=== PATIENT | male | born 1950 | race Caucasian/White ===

== ENCOUNTER 2022-02-25 05:18 | Emergency (ER) | payer MEDICARE, OTHER ==
[~2022-02-25] VITALS: Ht 180.3 cm; Wt 123.2 kg
[2022-02-25 05:25] VITALS: BP 141/85
[2022-02-25] MEDS ORDERED: SULF1TAB49 PO (07:24)
[2022-02-25] MEDS ORDERED: bacitracin 15gm ointment TP ONE (07:25)
== END 2022-02-25 07:47 | disposition home or self-care (01) ==
LOC: ER 05:19 → EDSEX 05:19 → ER 07:47
DX: S90.422A Blister (nonthermal), left great toe, initial encounter (principal); E11.9 Type 2 diabetes mellitus without complications; X58.XXXA Exposure to other specified factors, initial encounter; Y93.89 Activity, other specified; Y92.89 Other specified places as the place of occurrence of the external cause; Y99.8 Other external cause status
CPT/HCPCS: 73660; 99283; A6402